=== PATIENT | female | born 1970 | race Hispanic/Latino ===

== ENCOUNTER 2020-06-28 05:45 | Day surgery (SDC) | payer BC ==
[2020-06-20 09:54] LABS: BASOPHILS % (AUTO) 0.7 % (0.0-5.0); EOSINOPHILS % (AUTO) 4.7 % (0.0-8.0); HEMATOCRIT 40.9 % (36-48); MEAN CORPUSCULAR HEMOGLOBIN 29.8 pg (27.0-33.0); MEAN CORPUSCULAR VOLUME 90.3 fL (79-99); MONOCYTES % (AUTO) 8.1 % (3.0-13.0); NEUTROPHILS % (AUTO) 61.2 % (40.0-77.0); PLATELET COUNT (AUTO) 252 K/uL (130-400); RED BLOOD CELL COUNT(AUTO) 4.53 MIL/uL (4.00-5.50); RED CELL DISTRIBUTION WIDTH 13.3 % (11.0-15.5); WHITE BLOOD COUNT (AUTO) 7.4 K/uL (4.8-10.8)
[2020-06-20 10:07] LABS: CREATININE 0.9 mg/dL (0.5-1.5); POTASSIUM 3.9 mmol/L (3.5-5.1)
[2020-06-23] MEDS: CEFAZOLIN SODIUM 1 GM VIAL IVP SCH (10:00)
[2020-06-24 09:56] VITALS: BP 140/78
--- NOTE | 2020-06-26 14:46 | NUR ---
PATIENT WAS NOTIFIED OF POSITIVE COVID. SHE WAS POSITIVE BACK IN JANUARY. HAS A CLEARANCE LETTER FROM [facility]. WILL BRING DAY OF SURGERY. PATIENT DENIES ANY FEVER, COUGH, RUNNY NOSE, SOB. SHE IS AWARE THAT CASE WILL BE POSTPONED IF SYMPTOMATIC DAY OF PROCEDURE.
[2020-06-28] VITALS (17 sets, daily range): BP systolic 105–143; BP diastolic 53–74
[~2020-06-28] VITALS: Ht 180.3 cm; Wt 103.1 kg
[~2020-06-28 05:45] MED LIST: ACET-66 PO; MELO-108 PO; TRAM50TA4 PO
[2020-06-28] MEDS ORDERED: LACTATED RINGERS 1000ML 1,000 ML IV ONE (06:23)
--- NOTE | 2020-06-28 06:46 | NUR ---
sx scd applied to ble. right shoulder wiped with chlorhexidine gluconate on operative site right shoulder. by olivia
[2020-06-28] MEDS ORDERED: LIDOCAINE PF 2% 5ML ABBOJECT ONE (07:27)
[2020-06-28] MEDS ORDERED: SUCCINYLCHOLINE CHLORIDE 20 MG/ML 10 ML VIAL ONE (07:27)
[2020-06-28] MEDS ORDERED: PROPOFOL 10 MG/ML 20ML VIAL IV ONE (07:28)
[2020-06-28] MEDS ORDERED: ROCURONIUM 10MG/1ML SYR 10 MG/ML ML ONE (07:28)
[2020-06-28] MEDS ORDERED: FENTANYL CITRATE PF 50 MCG/1 ML 2ML VIAL ONE (07:28)
[2020-06-28] MEDS ORDERED: ROPIVACAINE 0.5% 5MG/ML 30ML IJ ONE (07:32)
[2020-06-28] MEDS: CEFAZOLIN SODIUM 1 GM VIAL IVP SCH (08:15)
[2020-06-28] MEDS ORDERED: GLYCOPYRROLATE 1 MG/5 ML SYRINGE ONE (08:41)
[2020-06-28] MEDS ORDERED: NEOSTIGMINE 5MG/5ML SYR IV ONE (08:54)
[2020-06-28] MEDS ORDERED: ONDANSETRON HCL 4 MG/2 ML VIAL ONE ×2 (08:58→09:49)
[2020-06-28] MEDS ORDERED: KETOROLAC TROMETHAMINE 30MG/ML ONE (08:58)
[2020-06-28] MEDS ORDERED: MEPERIDINE-PF 25 MG/ML SYG ONE (09:38)
[2020-06-28] MEDS ORDERED: METOCLOPRAMIDE 10 MG/2 ML VIAL ONE (09:49)
--- NOTE | 2020-06-28 10:20 | NUR ---
PREOP RECEIVED PT AND REPORT FROM GLO EDWARD FROM PACU. PT IN NO DISTRESS AT THIS TIME. PT HAS RT ARM SLING WITH DRESSING CLEAN AND DRY. ICE PACK APPLIED. PT ORIENTED TO ROOM AND CALL LIGHT. WILL CONTINUE TO MONITOR PT
--- NOTE | 2020-06-28 11:00 | NUR ---
DISCHARGE PT AND SIGNIFICANT OTHER GIVEN DISCHARGE INSTRUCTIONS. UNDERSTANDING VOICED. PT TAKEN OUT VIA W/C BY LAURENT SCHROEDER IN NO DISTRESS
== END 2020-06-28 11:00 | disposition home or self-care (01) ==
LOC: DAH 05:45
PROVIDERS: ATTEND Orthopaedic Surgery
DX: M75.101 Unspecified rotator cuff tear or rupture of right shoulder, not specified as traumatic (principal); U07.1 COVID-19; M24.111 Other articular cartilage disorders, right shoulder; M25.711 Osteophyte, right shoulder; M25.811 Other specified joint disorders, right shoulder; M75.51 Bursitis of right shoulder; M25.511 Pain in right shoulder; E66.9 Obesity, unspecified; K21.9 Gastro-esophageal reflux disease without esophagitis; Z98.890 Other specified postprocedural states; Z79.899 Other long term (current) drug therapy; Z72.89 Other problems related to lifestyle; Z82.49 Family history of ischemic heart disease and other diseases of the circulatory system; Z68.34 Body mass index [BMI] 34.0-34.9, adult
CPT/HCPCS: 29823; 29826; 36415; 64415; 76942; 80048; 84703; 85025; 93005; A4215 ×2; A4216; A4221 ×2; A4222 ×2; A4223 ×4; A4452; A4565; A4600; A4606; A4649 ×6; A4663 ×2; A6260; C9803; J0330; J0690; J1885; J2001; J2175; J2405 ×2; J2704; J2710; J2765; J2795; J3010; J3490; J7120 ×2; U0003 ×2